=== PATIENT | female | born 1975 | race Caucasian/White ===

== ENCOUNTER 2024-04-22 08:04 | Inpatient (IN) | payer OTHER ==
[2024-04-22] VITALS (7 sets, daily range): PULSE 91–178; RESP 20–22; O2SAT 98–100
[~2024-04-22] VITALS: Ht 154.9 cm; Wt 86.0 kg
[2024-04-22] MEDS ORDERED: KETAMINE HCL 500 MG in DEXTROSE 5%-WATER 490 ML IV PRN (08:15)
[2024-04-22] MEDS: CefTRIAXone 1 GM/DEXTROSE 50 ML IV ONE (08:30)
[2024-04-22] MEDS: AZITHROMYCIN 500 MG/NS 250 ML IV ONE (08:30)
[2024-04-22] MEDS: KETAMINE HCL 500 MG in DEXTROSE 5%-WATER 490 ML IV PRN (08:35)
[2024-04-22] MEDS: ALBUTEROL SULFATE 2.5 MG/0.5 ML NEB SOLUTION NEB ONE ×2 (08:36→13:08)
[2024-04-22] MEDS: IPRATROPIUM BROMIDE 0.5 MG/2.5 ML NEB SOLUTION NEB ONE ×2 (08:36→13:08)
[2024-04-22 08:48] LABS: EOSINOPHILS % (AUTO) 1.1 % (1.0-6.0); HEMATOCRIT 46.5 % (36-46); HEMOGLOBIN 14.5 g/dL (12.0-16.0); LYMPHOCYTES # (AUTO) 3.9 K/uL (1.0-4.8); LYMPHOCYTES % (AUTO) 25.7 % (22.0-44.0); MEAN CORPUSCULAR HEMOGLOBIN 26.7 pg (26.0-34.0); MEAN CORPUSCULAR HGB CONC 31.1 G/dL (31.0-37.0); MEAN CORPUSCULAR VOLUME 86 fL (80-100); MONOCYTES # (AUTO) 1.2 K/uL (0.1-1.0); NEUTROPHILS # (AUTO) 9.6 K/uL (1.8-7.7); NEUTROPHILS % (AUTO) 64.2 % (40.0-70.0); PLATELET COUNT (AUTO) 378 K/uL (150-450); RED BLOOD CELL COUNT(AUTO) 5.41 MIL/uL (4.00-5.20); RED CELL DISTRIBUTION WIDTH 15.6 % (11.5-14.5)
[2024-04-22 09:02] LABS: PROTHROMBIN TIME 10.3 SEC (9.4-11.6)
[2024-04-22 09:10] LABS: CALCIUM, TOTAL 8.5 mg/dL (8.8-10.5); CREATININE 1.11 mg/dL (0.60-1.30); POTASSIUM 4.1 mmol/L (3.5-5.1)
[2024-04-22] MEDS: METOPROLOL TARTRATE 5 MG/5 ML VIAL IVP ONE (09:19)
[2024-04-22] MEDS: MethylPREDNISolone SOD SUCC 125 MG/2 ML VIAL IVP ONE (09:19)
[2024-04-22 09:45] LABS: ABG BASE EXCESS -6.2 mmol/L (-2.0-3.0); ABG CARBOXYHEMOGLOBIN 0.8 % (0.5-1.5); ABG HCO3 19.8 mmol/L (21.0-28.0); ABG METHEMOGLOBIN 0.8 % (0.0-1.5); ABG OXYGEN CONTENT 21.8 mL/dL (15.0-23.0); ABG OXYGEN SATURATION 99.7 % (94.0-98.0); ABG OXYHEMOGLOBIN 98.1 % (94.0-98.0); ABG PCO2 40 mmHg (32.0-45.0); ABG PH 7.313 (7.350-7.450); ABG TOTAL HEMOGLOBIN 15.2 G/dL (12.0-16.0); SOURCE, BLOOD GAS ARTERIAL; TEMPERATURE, FAHRENHEIT, BG 98.6 FAHREN (96.0-98.6)
[2024-04-22 09:47] LABS: ABG A-A DIFF O2 342.2 mmHg (10-20.0); ALLEN TEST, BLOOD GAS Positive; O2 DEVICE,BLOOD GAS VENTILATOR (ROOM AIR); PEEP,BG 5 cm H2O; PO2, ARTERIAL BG 330.4 mmHg (83.0-108.0); SITE, BLOOD GAS RT RADIAL; SPONTANEOUS VT, BG 464 ml; VT, ABG 420 ml
[2024-04-22] MEDS: ROCURONIUM BROMIDE 10 MG/ML 5 ML VIAL IVP ONE (10:04)
[2024-04-22] MEDS: ETOMIDATE 2 MG/ML 10 ML VIAL IVP ONE (10:04)
[2024-04-22] MEDS ORDERED: BISACODYL 10 MG RECTAL RECTAL SUPPOSITORY PR PRN (10:45)
[2024-04-22] MEDS ORDERED: DEXTROSE 50%-WATER 25 GM/50 ML SYRINGE IVP PRN (10:45)
[2024-04-22] MEDS ORDERED: PROPOFOL 1000 MG/ISO-OSM 100 ML ONE (11:07)
[2024-04-22 12:59] LABS: TROPONIN I-HIGH SENSITIVITY 24 ng/L (<51)
[2024-04-22 13:03] LABS: PH,URINE DRUG SCREEN 6.5 (5.0-8.0)
[2024-04-22] MEDS ORDERED: NOREPINEPHRINE 8 MG/0.9 % NACL 250 ML IV ONE (13:13)
[2024-04-22] MEDS ORDERED: PROPOFOL 1000 MG/ISO-OSM 100 ML IV PRN (13:15)
[2024-04-22] MEDS ORDERED: NOREPINEPHRINE 8 MG/0.9 % NACL 250 ML IV PRN (13:30)
[2024-04-22 13:52] LABS: AMPHET/METH SCREEN,URINE NEGATIVE (NEGATIVE); BARBITURATE SCREEN, URINE NEGATIVE (NEGATIVE); BENZODIAZEPINES SCREEN,URINE NEGATIVE (NEGATIVE); CANNABINOID SCREEN,URINE NEGATIVE (NEGATIVE); COCAINE SCREEN,URINE NEGATIVE (NEGATIVE); METHADONE SCREEN, URINE NEGATIVE (NEGATIVE); OPIATE SCREEN,URINE NEGATIVE (NEGATIVE); PHENCYCLIDINE SCREEN,URINE NEGATIVE (NEGATIVE)
[2024-04-22] MEDS: SODIUM CHLORIDE 0.9% 1,000 ML IV ONE ×2 (14:18)
[2024-04-22] MEDS: NOREPINEPHRINE 8 MG/0.9 % NACL 250 ML IV PRN (14:37)
[2024-04-22] MEDS: MethylPREDNISolone SOD SUCC 125 MG/2 ML VIAL IVP SCH (14:37)
[2024-04-22] MEDS ORDERED: PRED-549 PO (14:42)
[2024-04-22] MEDS ORDERED: PYRI60TA PO (14:43)
[2024-04-22] MEDS ORDERED: HYDR25TA2 PO (14:45)
[2024-04-22] MEDS ORDERED: BECL10.62 IH (14:45)
[2024-04-22] MEDS ORDERED: MONT-35 PO (14:45)
[2024-04-22 14:49] LABS: ALCOHOL, URINE DRUG SCREEN NEGATIVE (NEGATIVE)
[2024-04-22] MEDS ORDERED: AMLO10TA55 PO (14:50)
[2024-04-22] MEDS ORDERED: ALBU18HF12 IH (14:50)
[2024-04-22] MEDS ORDERED: LIDO700A30 TP (14:50)
[2024-04-22] MEDS ORDERED: OMEP20CA12 PO (14:50)
[2024-04-22] MEDS ORDERED: CARV12.530 PO (14:50)
[2024-04-22] MEDS ORDERED: PRED-729 PO (14:50)
[2024-04-22] MEDS ORDERED: MYCO500T5 PO (14:50)
[2024-04-22] MEDS ORDERED: ACET-66 PO (14:50)
[2024-04-22 15:25] LABS: COVID AG,FIA SOURCE NASAL SWAB
[2024-04-22 15:33] LABS: APPEARANCE,URINE HAZY (CLEAR); BILIRUBIN,URINE NEGATIVE (NEGATIVE); COLOR,URINE LIGHT YELLOW (YELLOW); GLUCOSE, URINE (UA) 300-500 mg/dL (NEGATIVE); KETONES,URINE NEGATIVE (NEGATIVE); LEUKOCYTE ESTERASE ,URINE NEGATIVE (NEGATIVE); NITRATE,URINE NEGATIVE (NEGATIVE); OCCULT BLOOD,URINE SMALL (NEGATIVE); PH,URINE 6.5 (5.0-8.0); PROTEIN,URINE 100-200,SEE CONFIRM mg/dL (NEGATIVE); SPECIFIC GRAVITIY, URINE 1.012 (1.003-1.030); UROBILINOGEN,URINE <=1.0 mg/dL (<=1.0)
[2024-04-22 15:47] LABS: SULFOSALICYLIC ACID,URINE 1+ (Negative)
[2024-04-22] MEDS: HEPARIN SODIUM,PORCINE 5,000 UNITS/ML VIAL SQ SCH (15:52)
[2024-04-22 16:07] LABS: BACTERIA,URINE Few /HPF (None Seen); SQUAMOUS EPITHELIAL CELL,UR Moderate /LPF (None Seen); WBC,URINE 0-2 /HPF (0-5)
[2024-04-22 16:14] LABS: INFLUENZA TYPE A NEGATIVE FOR TYPE A (NEGATIVE); INFLUENZA TYPE B NEGATIVE FOR TYPE B (NEGATIVE); SARS-COV2 (COVID) ANTIGEN,FIA Negative (Negative)
[2024-04-22 17:19] LABS: LACTIC ACID 1.9 mmol/L (0.4-2.0)
[2024-04-22] MEDS: PROPOFOL 1000 MG/ISO-OSM 100 ML IV PRN (18:47)
[2024-04-22 19:21] LABS: GLUCOMETER DEV NAME(LOC) ERT.6; GLUCOSE,POINT OF CARE 212 MG/DL (70-110)
[2024-04-22] MEDS: FentaNYL CIT 1000MCG/0.9% NACL 100 ML IV PRN (20:16)
[2024-04-22] MEDS: DOCUSATE SODIUM 100 MG CAPSULE PO SCH (20:29)
[2024-04-22] MEDS: ETHYL ALCOHOL 62% ANTISEPTIC NASAL SANITIZER 0.6 ML AMPUL NASAL SCH (22:36)
[2024-04-22] MEDS: CHLORHEXIDINE GLUCONATE 2% TOWELETTE [2'S/6'S] TP SCH (22:37)
[2024-04-22] MEDS: PYRIDOSTIGMINE BROMIDE 60 MG TABLET PO SCH (22:51)
[2024-04-23] VITALS (22 sets, daily range): BP systolic 101–134; BP diastolic 58–90; PULSE 69–101; RESP 20–26; TEMP 98.2–100; O2SAT 96–100
[2024-04-23] MEDS: MIDAZOLAM HCL 100 MG in SODIUM CHLORIDE 0.9% 180 ML IV PRN (05:48)
[2024-04-23] MEDS: INSULIN LISPRO 100 UNITS/ML SQ PRN (05:51)
[2024-04-23] MEDS: PROPOFOL 1000 MG/ISO-OSM 100 ML IV PRN (06:04)
[2024-04-23 06:11] LABS: GLUCOMETER DEV NAME(LOC) ICUN.5; GLUCOSE,POINT OF CARE 155 MG/DL (70-110)
[2024-04-23 06:11] LABS: GLUCOMETER DEV NAME(LOC) ICUN.5; GLUCOSE,POINT OF CARE 140 MG/DL (70-110)
[2024-04-23 06:25] LABS: EOSINOPHILS % (AUTO) 0 % (1.0-6.0); HEMATOCRIT 41.8 % (36-46); HEMOGLOBIN 13.4 g/dL (12.0-16.0); LYMPHOCYTES # (AUTO) 1.2 K/uL (1.0-4.8); LYMPHOCYTES % (AUTO) 7.8 % (22.0-44.0); MEAN CORPUSCULAR HEMOGLOBIN 26.9 pg (26.0-34.0); MEAN CORPUSCULAR VOLUME 84 fL (80-100); MONOCYTES # (AUTO) 0.4 K/uL (0.1-1.0); MONOCYTES % (AUTO) 2.3 % (2.0-9.0); NEUTROPHILS # (AUTO) 13.6 K/uL (1.8-7.7); PLATELET COUNT (AUTO) 244 K/uL (150-450); RED BLOOD CELL COUNT(AUTO) 4.96 MIL/uL (4.00-5.20); RED CELL DISTRIBUTION WIDTH 15.3 % (11.5-14.5); WHITE BLOOD COUNT (AUTO) 15.1 K/uL (4.5-11.0)
[2024-04-23 06:27] LABS: ALANINE AMINOTRANSFERASE 76 U/L (12-78); ALBUMIN 2.7 g/dL (3.4-5.0); ALKALINE PHOSPHATASE 120 U/L (46-116); ANION GAP 8 mmol/L (8-16); ASPARTATE AMINOTRANSFERASE 46 U/L (15-37); BILIRUBIN,TOTAL 0.4 mg/dL (0.1-1.0); CALCIUM, TOTAL 8.5 mg/dL (8.8-10.5); CARBON DIOXIDE 27 mmol/L (22-29); CHLORIDE 106 mmol/L (98-107); CREATININE 0.62 mg/dL (0.60-1.30); GLOMERULAR FILTR. RATE CALC > 60 mL/min (>60); GLUCOSE,RANDOM 146 mg/dL (70-110); POTASSIUM 4.1 mmol/L (3.5-5.1); SODIUM SERUM 141 mmol/L (136-145); TOTAL PROTEIN, SERUM 6.8 g/dL (6.4-8.2); UREA NITROGEN, BLOOD 14 mg/dL (7-18)
[2024-04-23 06:37] LABS: NEUTROPHILS % (AUTO) 89.9 % (40.0-70.0)
[2024-04-23] MEDS ORDERED: KETAMINE HCL 500 MG in DEXTROSE 5%-WATER 490 ML IV PRN (06:45)
[2024-04-23] MEDS ORDERED: SODIUM CHLORIDE 0.9% 1,000 ML ONE (09:04)
[2024-04-23 09:10] LABS: GLUCOMETER DEV NAME(LOC) ER.7; GLUCOSE,POINT OF CARE 296 MG/DL (70-110)
[2024-04-23] MEDS ORDERED: SODIUM CHLORIDE 0.9% 500 ML IV ONE (09:16)
[2024-04-23] MEDS: CefTRIAXone 1 GM/DEXTROSE 50 ML IV SCH (09:31)
[2024-04-23] MEDS: PANTOPRAZOLE SODIUM 40 MG/VIAL IVP SCH (09:33)
[2024-04-23] MEDS: AZITHROMYCIN 500 MG/NS 250 ML IV SCH (10:24)
[2024-04-23 12:11] LABS: GLUCOMETER DEV NAME(LOC) ICU.S6; GLUCOSE,POINT OF CARE 144 MG/DL (70-110)
[2024-04-23] MEDS: ALBUTEROL SULFATE 2.5 MG/0.5 ML NEB SOLUTION NEB SCH (13:26)
[2024-04-23] MEDS: IPRATROPIUM BROMIDE 0.5 MG/2.5 ML NEB SOLUTION NEB SCH (13:26)
[2024-04-23] MEDS: ACETAMINOPHEN 325 MG TABLET PO PRN (17:07)
[2024-04-23] MEDS: ALBUTEROL SULFATE 2.5 MG/0.5 ML NEB SOLUTION NEB PRN (17:22)
[2024-04-23] MEDS: IPRATROPIUM BROMIDE 0.5 MG/2.5 ML NEB SOLUTION NEB PRN (17:22)
[2024-04-23 17:35] LABS: GLUCOMETER DEV NAME(LOC) ICUN.5; GLUCOSE,POINT OF CARE 155 MG/DL (70-110)
[2024-04-23] MEDS: DOCUSATE SODIUM 100 MG/10 ML LIQUID UDCUP NG SCH (21:22)
[2024-04-24] VITALS (18 sets, daily range): BP systolic 111–166; BP diastolic 55–84; PULSE 67–131; RESP 15–22; TEMP 98.6–99.3; O2SAT 95–100
[2024-04-24 03:06] LABS: GLUCOMETER DEV NAME(LOC) ICUN.5; GLUCOSE,POINT OF CARE 155 MG/DL (70-110)
[2024-04-24 05:50] LABS: GLUCOMETER DEV NAME(LOC) ICU.S6; GLUCOSE,POINT OF CARE 154 MG/DL (70-110)
[2024-04-24 06:06] LABS: BASOPHILS % (AUTO) 1.1 % (0.0-2.0); EOSINOPHILS % (AUTO) 0 % (1.0-6.0); HEMATOCRIT 35.9 % (36-46); HEMOGLOBIN 11.8 g/dL (12.0-16.0); LYMPHOCYTES # (AUTO) 0.8 K/uL (1.0-4.8); LYMPHOCYTES % (AUTO) 5.1 % (22.0-44.0); MEAN CORPUSCULAR HEMOGLOBIN 27.4 pg (26.0-34.0); MEAN CORPUSCULAR HGB CONC 32.7 G/dL (31.0-37.0); MEAN CORPUSCULAR VOLUME 84 fL (80-100); MONOCYTES # (AUTO) 0.5 K/uL (0.1-1.0); MONOCYTES % (AUTO) 3.3 % (2.0-9.0); NEUTROPHILS # (AUTO) 13.5 K/uL (1.8-7.7); PLATELET COUNT (AUTO) 221 K/uL (150-450); RED BLOOD CELL COUNT(AUTO) 4.29 MIL/uL (4.00-5.20); RED CELL DISTRIBUTION WIDTH 15.6 % (11.5-14.5); WHITE BLOOD COUNT (AUTO) 14.9 K/uL (4.5-11.0)
[2024-04-24 06:16] LABS: NEUTROPHILS % (AUTO) 90.5 % (40.0-70.0)
[2024-04-24 06:20] LABS: ALANINE AMINOTRANSFERASE 54 U/L (12-78); ALBUMIN 2.5 g/dL (3.4-5.0); ALKALINE PHOSPHATASE 92 U/L (46-116); ANION GAP 7 mmol/L (8-16); ASPARTATE AMINOTRANSFERASE 32 U/L (15-37); BILIRUBIN,TOTAL 0.4 mg/dL (0.1-1.0); CALCIUM, TOTAL 7.9 mg/dL (8.8-10.5); CARBON DIOXIDE 28 mmol/L (22-29); CHLORIDE 104 mmol/L (98-107); CREATININE 0.74 mg/dL (0.60-1.30); GLOMERULAR FILTR. RATE CALC > 60 mL/min (>60); GLUCOSE,RANDOM 146 mg/dL (70-110); PHOSPHORUS 2.4 mg/dL (2.5-4.9); POTASSIUM 3.6 mmol/L (3.5-5.1); SODIUM SERUM 139 mmol/L (136-145); TOTAL PROTEIN, SERUM 5.9 g/dL (6.4-8.2); UREA NITROGEN, BLOOD 22 mg/dL (7-18)
[2024-04-24] MEDS: ONDANSETRON HCL 4 MG/2 ML VIAL IVP PRN (09:36)
[2024-04-24] MEDS: DEXMEDETOMIDINE HCL 400 MCG in SODIUM CHLORIDE 0.9% 96 ML IV PRN (11:18)
[2024-04-24 13:52] LABS: ABG BASE EXCESS 0.2 mmol/L (-2.0-3.0); ABG CARBOXYHEMOGLOBIN 0.1 % (0.5-1.5); ABG HCO3 25.1 mmol/L (21.0-28.0); ABG METHEMOGLOBIN 0.1 % (0.0-1.5); ABG OXYGEN CONTENT 17.4 mL/dL (15.0-23.0); ABG OXYGEN SATURATION 97.6 % (94.0-98.0); ABG OXYHEMOGLOBIN 97.4 % (94.0-98.0); ABG PCO2 35 mmHg (32.0-45.0); ABG PH 7.459 (7.350-7.450); ABG TOTAL HEMOGLOBIN 12.6 G/dL (12.0-16.0); PO2, ARTERIAL BG 95.8 mmHg (83.0-108.0); SOURCE, BLOOD GAS ARTERIAL; TEMPERATURE, FAHRENHEIT, BG 99.1 FAHREN (96.0-98.6)
[2024-04-24 13:53] LABS: ABG A-A DIFF O2 149.3 mmHg (10-20.0); ALLEN TEST, BLOOD GAS Positive; CPAP, BG 0 cm H2O; O2 DEVICE,BLOOD GAS VENTILATOR (ROOM AIR); PRESSURE SUPPORT, BG 8 cm H2O; SITE, BLOOD GAS LFT RADIAL; SPONTANEOUS VT, BG 550 ml; VENT MODE, BG CPAP (ROOM AIR)
[2024-04-24 17:11] LABS: GLUCOMETER DEV NAME(LOC) ICU.S6; GLUCOSE,POINT OF CARE 152 MG/DL (70-110)
[2024-04-24 19:16] LABS: GLUCOMETER DEV NAME(LOC) ICU.S6; GLUCOSE,POINT OF CARE 148 MG/DL (70-110)
[2024-04-25] VITALS (15 sets, daily range): BP systolic 131–167; BP diastolic 72–99; PULSE 74–103; RESP 16–26; TEMP 98.5–98.8; O2SAT 93–100
[2024-04-25 01:21] LABS: GLUCOMETER DEV NAME(LOC) ICU.S6; GLUCOSE,POINT OF CARE 123 MG/DL (70-110)
[2024-04-25 06:02] LABS: GLUCOMETER DEV NAME(LOC) ICUN.5; GLUCOSE,POINT OF CARE 127 MG/DL (70-110)
[2024-04-25 06:10] LABS: BASOPHILS % (AUTO) 0.2 % (0.0-2.0); EOSINOPHILS % (AUTO) 0 % (1.0-6.0); HEMATOCRIT 36.1 % (36-46); HEMOGLOBIN 11.9 g/dL (12.0-16.0); LYMPHOCYTES # (AUTO) 0.5 K/uL (1.0-4.8); MEAN CORPUSCULAR HEMOGLOBIN 27.6 pg (26.0-34.0); MEAN CORPUSCULAR HGB CONC 32.9 G/dL (31.0-37.0); MEAN CORPUSCULAR VOLUME 84 fL (80-100); MONOCYTES # (AUTO) 0.5 K/uL (0.1-1.0); NEUTROPHILS # (AUTO) 9.7 K/uL (1.8-7.7); PLATELET COUNT (AUTO) 196 K/uL (150-450); RED CELL DISTRIBUTION WIDTH 15.5 % (11.5-14.5); WHITE BLOOD COUNT (AUTO) 10.8 K/uL (4.5-11.0)
[2024-04-25 06:16] LABS: NEUTROPHILS % (AUTO) 89.8 % (40.0-70.0)
[2024-04-25 06:18] LABS: ANION GAP 7 mmol/L (8-16); CALCIUM, TOTAL 8.1 mg/dL (8.8-10.5); CARBON DIOXIDE 30 mmol/L (22-29); CHLORIDE 106 mmol/L (98-107); CREATININE 0.56 mg/dL (0.60-1.30); GLOMERULAR FILTR. RATE CALC > 60 mL/min (>60); GLUCOSE,RANDOM 121 mg/dL (70-110); POTASSIUM 3.7 mmol/L (3.5-5.1); SODIUM SERUM 143 mmol/L (136-145); UREA NITROGEN, BLOOD 19 mg/dL (7-18)
[2024-04-25] MEDS: MethylPREDNISolone SOD SUCC 40 MG/ML VIAL IVP SCH (17:42)
[2024-04-25 18:11] LABS: GLUCOMETER DEV NAME(LOC) ICUN.5; GLUCOSE,POINT OF CARE 208 MG/DL (70-110)
[2024-04-25] MEDS: GuaiFENesin/D-METHORPHAN/PHENYLEPH 5 ML LIQUID ORAL.SYG PO PRN (20:57)
[2024-04-26] VITALS (9 sets, daily range): BP systolic 133–164; BP diastolic 73–92; PULSE 65–80; RESP 16–18; TEMP 97.9–98.3; O2SAT 95–98
[2024-04-26 01:25] LABS: GLUCOMETER DEV NAME(LOC) 5N.2C; GLUCOSE,POINT OF CARE 152 MG/DL (70-110)
[2024-04-26 01:25] LABS: GLUCOMETER DEV NAME(LOC) 5N.2C; GLUCOSE,POINT OF CARE 155 MG/DL (70-110)
[2024-04-26] MEDS ORDERED: SODIUM CHLORIDE 0.9% 250 ML IV ONE (08:44)
[2024-04-26 11:31] LABS: GLUCOMETER DEV NAME(LOC) 5N.2C; GLUCOSE,POINT OF CARE 148 MG/DL (70-110)
[2024-04-26 12:30] LABS: GLUCOMETER DEV NAME(LOC) 5N.2C; GLUCOSE,POINT OF CARE 131 MG/DL (70-110)
[2024-04-26 18:30] LABS: GLUCOMETER DEV NAME(LOC) 5N.2C; GLUCOSE,POINT OF CARE 148 MG/DL (70-110)
[2024-04-27] VITALS (7 sets, daily range): BP systolic 139–168; BP diastolic 15–80; PULSE 67–78; RESP 16–18; TEMP 97.7–98; O2SAT 95–98
[2024-04-27 02:36] LABS: GLUCOMETER DEV NAME(LOC) 5S.2D; GLUCOSE,POINT OF CARE 185 MG/DL (70-110)
[2024-04-27] MEDS ORDERED: BECL10.62 IH (11:18)
[2024-04-27] MEDS ORDERED: PRED-729 PO (11:18)
[2024-04-27] MEDS ORDERED: PRED-554 PO ×2 (11:18)
[2024-04-27] MEDS ORDERED: AZIT-167 PO (11:18)
[2024-04-27] MEDS ORDERED: CEPH-558 PO (11:18)
[2024-04-27] MEDS ORDERED: ALBU18HF12 IH (11:18)
[2024-04-27 17:25] LABS: GLUCOMETER DEV NAME(LOC) 5S.2D; GLUCOSE,POINT OF CARE 139 MG/DL (70-110)
[2024-04-28] MEDS ORDERED: PredniSONE 10 MG TABLET PO SCH (09:00)
== END 2024-04-27 12:00 | disposition home or self-care (01) | DRG 720 ==
LOC: EMS 08:17 → EDH 10:32 → ICU 21:30 → UNDODISIN 04-23 17:45 → 5N 04-25 16:30
PROVIDERS: ADMIT Internal Medicine; ATTEND Internal Medicine
PROC: 0BH17EZ Insertion of Endotracheal Airway into Trachea, Via Natural or Artificial Opening (ICD-10-PCS; 2024-04-22)
PROC: 5A1945Z Respiratory Ventilation, 24-96 Consecutive Hours (ICD-10-PCS; 2024-04-22)
PROC: 05HB33Z Insertion of Infusion Device into Right Basilic Vein, Percutaneous Approach (ICD-10-PCS; principal; 2024-04-24)
DX: A41.9 Sepsis, unspecified organism (principal); J96.00 Acute respiratory failure, unspecified whether with hypoxia or hypercapnia; J69.0 Pneumonitis due to inhalation of food and vomit; G70.01 Myasthenia gravis with (acute) exacerbation; J47.0 Bronchiectasis with acute lower respiratory infection; J18.9 Pneumonia, unspecified organism; Z99.11 Dependence on respirator [ventilator] status; J45.901 Unspecified asthma with (acute) exacerbation; Z20.822 Contact with and (suspected) exposure to COVID-19; F32.A Depression, unspecified; E11.65 Type 2 diabetes mellitus with hyperglycemia; J20.9 Acute bronchitis, unspecified; E66.9 Obesity, unspecified; E78.5 Hyperlipidemia, unspecified; I10 Essential (primary) hypertension; Z68.35 Body mass index [BMI] 35.0-35.9, adult
CPT/HCPCS: 36245; 36569; 36600; 70450; 71045; 71250; 76937; 80048; 80053; 80307; 81001; 81002; 82550; 82805; 82962; 83605; 83735; 83880; 84100; 84484; 84702; 85025; 85610; 85730; 87040; 87070; 87081; 87205; 87481; 87804; 92610; 93005; 94002; 94003; 94640; 97110; 97116; 97162; 97167; 97530; 97535; 99291; J0456; J0696; J1644; J2250; J2405; J2470; J2704; J2919; J3010; J3490; J7030; J7040; J7050; J7060; 36415-L1; 36415-TC; J7613

== ENCOUNTER 2024-04-28 08:42 | Emergency (ER) | payer OTHER ==
[~2024-04-28] VITALS: Ht 137.2 cm; Wt 81.0 kg
[~2024-04-28 08:42] MED LIST: ACET-66 PO; ALBU18HF12 IH; AMLO10TA55 PO; AZIT-167 PO; BECL10.62 IH; CARV12.530 PO; CEPH-558 PO; HYDR25TA2 PO; LIDO700A30 TP; MONT-35 PO; MYCO500T5 PO; OMEP20CA12 PO; PRED-554 PO; PRED-729 PO; PYRI60TA PO
[2024-04-28 09:13] VITALS: TEMP 98
[2024-04-28] MEDS: IPRATROPIUM BROMIDE 0.5 MG/2.5 ML NEB SOLUTION NEB ONE (09:55)
[2024-04-28] MEDS: ALBUTEROL SULFATE 2.5 MG/0.5 ML NEB SOLUTION NEB ONE (09:55)
[2024-04-28 09:59] VITALS: PULSE 87; RESP 18; O2SAT 95
[2024-04-28 10:02] VITALS: PULSE 87; RESP 18; O2SAT 95
[2024-04-28 10:12] LABS: ANION GAP 7 mmol/L (8-16); CALCIUM, TOTAL 8.3 mg/dL (8.8-10.5); CARBON DIOXIDE 28 mmol/L (22-29); CHLORIDE 105 mmol/L (98-107); CREATININE 0.63 mg/dL (0.60-1.30); GLOMERULAR FILTR. RATE CALC > 60 mL/min (>60); GLUCOSE,RANDOM 101 mg/dL (70-110); POTASSIUM 3.6 mmol/L (3.5-5.1); SODIUM SERUM 140 mmol/L (136-145); UREA NITROGEN, BLOOD 12 mg/dL (7-18)
[2024-04-28 10:22] LABS: TROPONIN I-HIGH SENSITIVITY 82 ng/L (<51)
[2024-04-28 10:36] LABS: BASOPHILS % (AUTO) 0.5 % (0.0-2.0); EOSINOPHILS % (AUTO) 1.2 % (1.0-6.0); HEMATOCRIT 44.8 % (36-46); HEMOGLOBIN 14.4 g/dL (12.0-16.0); LYMPHOCYTES # (AUTO) 1.5 K/uL (1.0-4.8); LYMPHOCYTES % (AUTO) 8.7 % (22.0-44.0); MEAN CORPUSCULAR HEMOGLOBIN 26.9 pg (26.0-34.0); MEAN CORPUSCULAR HGB CONC 32.1 G/dL (31.0-37.0); MEAN CORPUSCULAR VOLUME 84 fL (80-100); MONOCYTES # (AUTO) 1.6 K/uL (0.1-1.0); MONOCYTES % (AUTO) 9.3 % (2.0-9.0); NEUTROPHILS % (AUTO) 80.3 % (40.0-70.0); PLATELET COUNT (AUTO) 202 K/uL (150-450); RED BLOOD CELL COUNT(AUTO) 5.33 MIL/uL (4.00-5.20); RED CELL DISTRIBUTION WIDTH 15.6 % (11.5-14.5); WHITE BLOOD COUNT (AUTO) 17.4 K/uL (4.5-11.0)
[2024-04-28] MEDS: PredniSONE 20 MG TABLET PO ONE (10:36)
[2024-04-28] MEDS: CEPHALEXIN MONOHYDRATE 500 MG CAPSULE PO ONE (10:36)
[2024-04-28] MEDS: AZITHROMYCIN 500 MG TABLET PO ONE (10:36)
[2024-04-28 10:42] LABS: B-TYPE NATRIURETIC PEPTIDE 99 pg/mL (0-100)
[2024-04-28] MEDS: PYRIDOSTIGMINE BROMIDE 60 MG TABLET PO SCH (16:14)
[2024-04-28] MEDS: CEPHALEXIN MONOHYDRATE 500 MG CAPSULE PO SCH (16:14)
[2024-04-28 16:16] VITALS: BP 121/64; PULSE 112; RESP 18; O2SAT 97
[2024-04-28] MEDS ORDERED: MYCOPHENOLATE MOFETIL 250 MG CAPSULE PO SCH (21:00)
[2024-04-28] MEDS ORDERED: CARVEDILOL 12.5 MG TABLET PO SCH (21:00)
[2024-04-28] MEDS ORDERED: PredniSONE 20 MG TABLET PO SCH (21:00)
[2024-04-28] MEDS ORDERED: BECLOMETHASONE DIPR HFA 80 MCG/PUFF 10.6 GM INHALER IH SCH (21:00)
[2024-04-29] MEDS ORDERED: MONTELUKAST SODIUM 10 MG TABLET PO SCH (09:00)
[2024-04-29] MEDS ORDERED: AZITHROMYCIN 500 MG TABLET PO SCH (09:00)
[2024-04-29] MEDS ORDERED: AmLODIPine BESYLATE 10 MG TABLET PO SCH (09:00)
[2024-04-29] MEDS ORDERED: HYDROCHLOROTHIAZIDE 25 MG TABLET PO SCH (09:00)
== END 2024-04-28 18:00 | disposition admitted as inpatient to this hospital (09) ==
LOC: EMS 08:42
DX: J18.9 Pneumonia, unspecified organism (principal); J45.901 Unspecified asthma with (acute) exacerbation; R79.89 Other specified abnormal findings of blood chemistry; E78.5 Hyperlipidemia, unspecified; G70.01 Myasthenia gravis with (acute) exacerbation; I10 Essential (primary) hypertension; J96.91 Respiratory failure, unspecified with hypoxia; Z79.51 Long term (current) use of inhaled steroids; Z79.52 Long term (current) use of systemic steroids; Z79.624 Long term (current) use of inhibitors of nucleotide synthesis; Z79.899 Other long term (current) drug therapy; Z88.0 Allergy status to penicillin
CPT/HCPCS: 99285; 71045; 80048; 82962; 83880; 84484; 85025; 36415; 94640; 93005; G0238; J0456; J7512; J3535; J7517; J7613